=== PATIENT | female | born 1995 | race Caucasian/White ===

== ENCOUNTER 2018-08-13 09:08 | Emergency (ER) | payer SELFPAY ==
[~2018-08-13] VITALS: Ht 154.9 cm; Wt 50.0 kg
[2018-08-13] MEDS ORDERED: PROP10TA73 PO (09:15)
[2018-08-13] MEDS ORDERED: FLUO-191 PO (09:15)
[2018-08-13] MEDS ORDERED: IBUPROFEN 400 MG TABLET PO ONE (10:30)
[2018-08-13 12:30] VITALS: BP 122/66
== END 2018-08-13 12:39 | disposition home or self-care (01) ==
LOC: EMS 09:08
DX: S16.1XXA Strain of muscle, fascia and tendon at neck level, initial encounter (principal); S13.9XXA Sprain of joints and ligaments of unspecified parts of neck, initial encounter; V49.49XA Driver injured in collision with other motor vehicles in traffic accident, initial encounter; Y93.89 Activity, other specified; Y92.89 Other specified places as the place of occurrence of the external cause; Y99.8 Other external cause status
CPT/HCPCS: 70486; 72125